=== PATIENT | male | born 1945 | race Caucasian/White ===

== ENCOUNTER 2021-11-21 16:28 | Inpatient (IN) | payer MEDICARE ==
[~2021-11-21] VITALS: Ht 172.7 cm; Wt 71.7 kg
[2021-11-21 20:30] VITALS: BP 154/88
[2021-11-21] MEDS ORDERED: LORAZEPAM 0.5 MG TABLET PO PRN (23:30)
[2021-11-21] MEDS ORDERED: hydrALAZINE HCL IV 20 MG VIAL IV PRN (23:30)
[2021-11-21] MEDS ORDERED: HYDROCODONE/APAP 5/325MG TABLET PO PRN (23:30)
[2021-11-21] MEDS ORDERED: ENOXAPARIN SODIUM 30 MG/0.3 ML DISP.SYRIN SQ SCH (23:30)
[2021-11-21] MEDS ORDERED: ACETAMINOPHEN 325 MG TABLET PO PRN (23:30)
[2021-11-21] MEDS ORDERED: LABETALOL HCL IV 100MG VIAL IV ONE (23:30)
[2021-11-21] MEDS ORDERED: MAG HYDROX/AL HYDROX/SIMETH 30 ML UDC PO PRN (23:30)
[2021-11-22] VITALS: BP 151/90
[2021-11-22 00:14] LABS: THYROID STIMULATING HORMONE 34.128 uIU/mL (0.358-3.74)
[2021-11-22] MEDS ORDERED: DEXTROSE 50%-WATER 50 ML DISP.SYRIN IV PRN (03:30)
[2021-11-22] MEDS ORDERED: ENOXAPARIN SODIUM 30 MG/0.3 ML DISP.SYRIN SQ SCH (03:30)
[2021-11-22 05:00] VITALS: BP 132/80
--- NOTE | 2021-11-22 05:00 | NUR ---
PATIENT IN ER BED 18. PATIENT IS A/O X 2-3, RR EVEN AND UNLABORED NO SOB NOTED. PATIENT PLACED ON CARDIAC AND POX MONITOR. PATIENT IV LINE INTACT FLUSHING WELL RAC 20G. NEURO CHECK DONE PER UNIT PROTOCOL. PATIENT AM CARE DONE. PT TURN AND REPOSITIONED Q2H. PATIENT IN BED LOCKED AND PLACED IN THE LOWEST POSITION, CALL LIGHT IS WITHIN REACH, BED ALARM ON. WILL CONTINUE TO MONITOR.
[2021-11-22 05:37] LABS: BASOPHILS # (AUTO) 0.1 K/uL (0.0-0.2); BASOPHILS % (AUTO) 1.3 % (0.0-2.0); EOSINOPHILS % (AUTO) 4.6 % (0.0-6.0); HEMATOCRIT 28 % (39-51); HEMOGLOBIN 9.4 g/dL (13.5-17.5); LYMPHOCYTES # (AUTO) 1.7 K/uL (0.8-4.8); LYMPHOCYTES % (AUTO) 36.2 % (20.0-44.0); MEAN CORPUSCULAR HGB CONC 33 g/dl (31.0-36.0); MEAN CORPUSCULAR VOLUME 93 fL (80-96); MONOCYTES # (AUTO) 0.4 K/uL (0.1-1.30); MONOCYTES % (AUTO) 7.6 % (2.0-12.0); NEUTROPHILS # (AUTO) 2.4 K/uL (1.8-8.9); NEUTROPHILS % (AUTO) 50.3 % (43.0-81.0); PLATELET COUNT (AUTO) 228 K/uL (150-450); RED BLOOD CELL COUNT(AUTO) 3.03 MIL/uL (4.5-6.0); WHITE BLOOD COUNT (AUTO) 4.7 K/uL (4.3-11.0)
[2021-11-22 06:20] LABS: CALCIUM, SERUM 8.8 mg/dL (8.5-10.1); CARBON DIOXIDE 23 mmol/L (21-32); CHLORIDE 113 mmol/L (98-107); CREATININE 1.1 mg/dL (0.6-1.3); GLUCOSE 67 mg/dL (74-106); POTASSIUM 4.1 mmol/L (3.5-5.1); SODIUM SERUM 145 mmol/L (136-145); UREA NITROGEN, BLOOD 9 mg/dL (7-18)
[2021-11-22 06:31] LABS: CHOLESTEROL 171 mg/dL (<200); HDL CHOLESTEROL 41 mg/dL (40-60); LDL 86 mg/dL (0-99); TRIGLYCERIDES 185 mg/dL (30-150)
[2021-11-22 06:43] LABS: THYROID STIMULATING HORMONE 31.587 uIU/mL (0.358-3.74)
[2021-11-22] MEDS: LEVOTHYROXINE SODIUM 112 MCG TABLET PO SCH (07:30)
[2021-11-22] MEDS: PANTOPRAZOLE 40 MG TABLET.DR PO SCH (07:30)
--- NOTE | 2021-11-22 08:01 | NUR ---
THE PATIENT IS RECEIVED IN ER BED #18. THE PATIENT IS ALERT TO HIS NAME. IN ROOM AIR. RESPIRATION REGULAR AND UNLABORED. THE PATIENT IS IN NO APPARENT DISTRESS. THE PATIENT IS NOTED TO BE FALL RISK. FALL PRECAUTIONS TAKEN. WILL CONTINUE TO MONITOR THE PATIENT.
[2021-11-22] MEDS ORDERED: DOCU-141 PO (08:19)
[2021-11-22] MEDS ORDERED: DONE10TA11 PO (08:19)
[2021-11-22] MEDS ORDERED: OMEG1CAP40 PO (08:19)
[2021-11-22] MEDS ORDERED: CHOL200013 PO (08:19)
[2021-11-22] MEDS ORDERED: ATOR40TA PO (08:19)
[2021-11-22] MEDS ORDERED: SEMGLEE SUBCUT (08:19)
[2021-11-22] MEDS ORDERED: METO25TA6 PO (08:19)
[2021-11-22] MEDS ORDERED: CLOP75TA15 PO (08:19)
[2021-11-22] MEDS ORDERED: LEVO112T2 PO (08:19)
[2021-11-22] MEDS ORDERED: FLUT1BLS IH (08:19)
[2021-11-22] MEDS ORDERED: MULT-447 PO (08:19)
[2021-11-22] MEDS ORDERED: HYDR-4076 PO (08:19)
[2021-11-22] MEDS ORDERED: PANT20TA2 PO (08:19)
[2021-11-22] MEDS ORDERED: ASPI-1169 PO (08:19)
[2021-11-22] MEDS ORDERED: LISI40TA13 PO (08:19)
[2021-11-22] MEDS ORDERED: ASCO500C17 PO (08:19)
[2021-11-22] MEDS ORDERED: METF-442 PO (08:19)
--- NOTE | 2021-11-22 08:20 | NUR ---
BLOOD PRESSURE 131/72, HR 79, R 18, TEMP 98.1 AND OXYGEN SATURATION IN ROOM AIR IS AT 97% WILL CONTINUE TO MONITOR THE PATIENT.
--- NOTE | 2021-11-22 08:49 | NUR ---
WOUND CARE CONSULT: PT SEEN FOR SKIN ASSESSMENT AND NOTED TO BE INCONTINENT OF URINE WITH INTACT SKIN. SOME DISCOLORATION NOTED TO BUTTOCKS. PT IS NOTED TO BE MOVING ABOUT IN BED. DISCUSSED SKIN PROTECTION WITH NURSING STAFF. WILL SEE PRN.
[2021-11-22] MEDS ORDERED: LISINOPRIL (20MG) 20 MG TABLET PO SCH (09:00)
[2021-11-22] MEDS: ENOXAPARIN SODIUM 40 MG/0.4 ML DISP.SYRIN SQ SCH (09:00)
[2021-11-22] MEDS ORDERED: Z GUARD REMEDY 4 OZ OINT TP PRN (09:00)
[2021-11-22] MEDS: DOCUSATE SODIUM 100 MG CAPSULE PO SCH (09:00)
[2021-11-22] MEDS: ASPIRIN EC 81 MG TABLET.DR PO SCH (09:00)
[2021-11-22] MEDS: CLOPIDOGREL BISULFATE 75 MG TABLET PO SCH (09:00)
[2021-11-22] MEDS ORDERED: ASPIRIN EC 325 MG TABLET.DR PO SCH (09:00)
[2021-11-22] MEDS: Z GUARD REMEDY 4 OZ OINT TP SCH ×2 (09:00→21:10)
--- NOTE | 2021-11-22 09:54 | NUR ---
THE PATIENT IS SEEN BY ST FOR SWALLOW EVAL, HOWEVER, ST NOT ABLE TO COMPLETE THE EVAL. KEEPING THE PATIENT NPO FOR NOW PER ST. ST WILL TRY AGAIN LATER.
[2021-11-22] MEDS: METOPROLOL TARTRATE 25 MG TABLET PO SCH ×2 (10:00→21:07)
--- NOTE | 2021-11-22 10:10 | NUR ---
SEEN BY DR MENDEZ
[2021-11-22] MEDS ORDERED: ENOXAPARIN SODIUM 40 MG/0.4 ML DISP.SYRIN SQ ONE (10:13)
--- NOTE | 2021-11-22 10:55 | NUR ---
ROOM 314-1
[2021-11-22] MEDS: BLOOD SUGAR DIAGNOSTIC 1 EACH STRIP IN SCH ×4 (10:56→21:54)
--- NOTE | 2021-11-22 10:59 | NUR ---
REPORT GIVEN TO NURSE ALEXIS FOR MARA
--- NOTE | 2021-11-22 11:00 | NUR ---
AQUACULTURE DIRECTORJEWELRY STORE MANAGER NOTE RECEIVED PATIENT VIA GURNEY, PATIENT IS A/O X1 SYRIAC SPEAKING, PATIENT IS BREATHING EVENLY AND NONLABORED ON ROOM AIR, NO SIGNS OF DISTRESS NOTED AND NO SIGNS OF PAIN NOTED. PATIENT HAS IV ACCESS TO LAC # 20 GAUGE PATENT AND INTACT. PATIENT ABLE TO FOLLOW SIMPLE COMMANDS. PATIENT NOTED WITH SEVERE LEFT SIDED WEAKNESS AND MILD RIGHT SIDED WEAKNESS. PATIENT COMBATIVE AND CONFUSED TRYING TO GET OOB, NOTIFIED. PATIENT WAS GIVEN CALL LIGHT AND EXPLAINED HOW TO USE IT. SKIN C/D/I, ABDOMEN SOFT NONTENDER. PATIENT PLACE ON TELE MONITORING SHOW SINUS TACHYCARDIA. PATIENTS BLOOD SUGAR IS 75, SPEECH AT BEDSIDE, WILL GIVEN ORANGE JUICE WITH SUGAR. PUPILS EQUAL AND REACTIVE. PATIENTS VITALS BP 167/83, HR 105, O2 SAT 95 % RR 18 TEMP 97.7. PATIENT'S BELONGINGS ACCOUNTED FOR. SAFETY MEASURES IN PLACE BED LOW LOCKED AND BED ALARM ON. WILL CONTINUE TO MONITOR
--- NOTE | 2021-11-22 11:00 | NUR ---
THE PATIENT IS TRANSFERRED TO ROOM 314-1 IN STABLE CONDITION AND PER ACLS POLICY.
--- NOTE | 2021-11-22 11:10 | NUR ---
RN NOTE MD GAVE ORDER FOR 1 SOFT WRIST RESTRAINT ON RIGHT ARM, WILL PERFORM 15 MIN VISUAL CHECKS,
[2021-11-22] MEDS: INSULIN REGULAR, HUMAN 100 UNIT/ML 3 ML VIAL SQ PRN ×2 (12:08→17:10)
[2021-11-22 16:00] VITALS: BP 143/79
--- NOTE | 2021-11-22 16:16 | NUR ---
SS Consult requested for Stroke. SW will follow up at a later time.
--- NOTE | 2021-11-22 18:33 | NUR ---
CONE PICKER CLOSING NOTE PATIENT RESTING IN BED. PATIENT IS A/O X1 DUTCH SPEAKING, PATIENT IS BREATHING EVENLY AND NONLABORED ON ROOM AIR, NO SIGNS OF DISTRESS NOTED AND NO SIGNS OF PAIN NOTED. PATIENT HAS IV ACCESS TO LAC # 20 GAUGE PATENT AND INTACT. PATIENT ABLE TO FOLLOW SIMPLE COMMANDS. PATIENT NOTED WITH SEVERE LEFT SIDED WEAKNESS AND MILD RIGHT SIDED WEAKNESS. PATIENT COMBATIVE AND CONFUSED TRYING TO GET OOB, RIGHT SOFT WRIST RESTRAINT ON. PATIENT ON TELE MONITORING SHOW SINUS TACHYCARDIA. SAFETY MEASURES IN PLACE BED LOW LOCKED AND BED ALARM ON SIDE RAILS UP X2, CALL LIGHT WITHIN REACH. WILL ENDORSE TO ONCOMING SHIFT
[2021-11-22 20:53] VITALS: BP 139/82
[2021-11-22] MEDS ORDERED: METOPROLOL TARTRATE 25 MG TABLET ONE (20:56)
[2021-11-22] MEDS: DONEPEZIL 5 MG TABLET PO SCH (21:15)
[2021-11-22] MEDS: ATORVASTATIN 40 MG TABLET PO SCH (21:16)
[2021-11-22] MEDS ORDERED: SIMVASTATIN 20 MG TABLET PO SCH (22:00)
[2021-11-22] MEDS: IV D5/ 0.9% NACL 1,000 ML IV SCH (22:59)
[2021-11-23] VITALS (8 sets, daily range): BP systolic 128–152; BP diastolic 79–112
--- NOTE | 2021-11-23 04:22 | NUR ---
CLOSING NOTES: ALERT TO NURSE AT HIS BEDSIDE MALTESE SPEAKING ATTEMPTED TO FEED HIM HIS DINNER AT THE BEGINNING OF THE SHIFT AND HE REFUSED SHAKING HIS HEAD BACK AND FORTH REFUED TO DRINL WATER FOR ME. PLACED APPLESAUCE AND HIS CRUSHED PILL LOPRESSOR IN HIS MOUTH HE SPIT OUT THE APPLESAUSE ASP PRECAUTIONS HE DOES TALK BUT ONLY MALTESE LEFT SIDE WEAKNESS ARM AND LEG ARM CONTRACTED PREVIOUS STROKE RIGHT ARM STRONG nihss SCORE 7 bLOOD SUGAR hs 59 D50 GIVEN SLOWLY AND THEN THE MD Ngo CALLED AND MADE HIM AWARE THE PT IS NOT EATING BLOOD SUGARS RUNNING LOW AND THE LATEST IS 59 SUGGESTED IV FLUID NEW ORDER RECEIVED. MR. SHEIKH SLIDES DOWN IN THE BED CONTINIOUS THROUGH THE NIGHT ONE WRIST RESTRAINT ON DT HE PULLS OUT THE IV INCONTINENT UA
[2021-11-23] MEDS: BLOOD SUGAR DIAGNOSTIC 1 EACH STRIP IN SCH ×4 (06:03→22:29)
[2021-11-23 06:49] LABS: BASOPHILS # (AUTO) 0.1 K/uL (0.0-0.2); BASOPHILS % (AUTO) 1.5 % (0.0-2.0); EOSINOPHILS % (AUTO) 4.8 % (0.0-6.0); HEMATOCRIT 26 % (39-51); HEMOGLOBIN 8.4 g/dL (13.5-17.5); LYMPHOCYTES # (AUTO) 1.4 K/uL (0.8-4.8); LYMPHOCYTES % (AUTO) 32.3 % (20.0-44.0); MEAN CORPUSCULAR HGB CONC 33 g/dl (31.0-36.0); MEAN CORPUSCULAR VOLUME 93 fL (80-96); MONOCYTES # (AUTO) 0.4 K/uL (0.1-1.30); MONOCYTES % (AUTO) 9.4 % (2.0-12.0); NEUTROPHILS # (AUTO) 2.3 K/uL (1.8-8.9); PLATELET COUNT (AUTO) 217 K/uL (150-450); RED BLOOD CELL COUNT(AUTO) 2.77 MIL/uL (4.5-6.0); WHITE BLOOD COUNT (AUTO) 4.4 K/uL (4.3-11.0)
--- NOTE | 2021-11-23 07:25 | NUR ---
AIRPLANE GASTANK LINER ASSEMBLER OPENING NOTES RECEIVED PT IN BED, AWAKE, A/O X1, WITH CONFUSION. ON ROOM AIR NO SOB NOTED, BREATHING EVEN AND UNLABORED. IV ACCESS ON RAC #20G INTACT AND PATENT WITH D5NS @ 75ML/HR RUNNING. NO SIGNS OF PAIN. WITH RIGHT ARM WRIST RESTRAINT. NOTED PT TRYING TO GET OOB. REPOSITIONED NEEDED. SAFETY MEASURES IN PLACE, BED LOCKED AND IN LOWEST POSITION, SR X4 UP, CALL LIGHT PLACED WITHIN REACH. WILL CONTINUE TO MONITOR.
[2021-11-23] MEDS: PANTOPRAZOLE 40 MG TABLET.DR PO SCH (07:55)
[2021-11-23] MEDS: LEVOTHYROXINE SODIUM 112 MCG TABLET PO SCH (07:55)
[2021-11-23] MEDS: CLOPIDOGREL BISULFATE 75 MG TABLET PO SCH (08:55)
[2021-11-23] MEDS: ASPIRIN EC 81 MG TABLET.DR PO SCH (08:55)
[2021-11-23] MEDS: DOCUSATE SODIUM 100 MG CAPSULE PO SCH (08:55)
[2021-11-23] MEDS: METOPROLOL TARTRATE 25 MG TABLET PO SCH ×2 (08:56→22:34)
[2021-11-23] MEDS: ENOXAPARIN SODIUM 40 MG/0.4 ML DISP.SYRIN SQ SCH (08:56)
[2021-11-23 11:32] LABS: ALBUMIN 2.9 g/dL (3.4-5.0); BILIRUBIN,TOTAL 0.3 mg/dL (0.2-1.0); CALCIUM, SERUM 9.4 mg/dL (8.5-10.1); MAGNESIUM 1.9 mg/dL (1.8-2.4); PHOSPHORUS 1.4 mg/dL (2.5-4.9); TOTAL PROTEIN, SERUM 7.1 g/dL (6.4-8.2)
[2021-11-23 11:53] LABS: POTASSIUM 2.8 mmol/L (3.5-5.1)
[2021-11-23] MEDS: POTASSIUM CHLORIDE 20 MEQ TAB.PRT.SR PO SCH ×3 (12:25→14:57)
[2021-11-23] MEDS ORDERED: K PHOS NEUTRAL 250 MG TABLET PO ONE (12:30)
[2021-11-23] MEDS: LORAZEPAM INJ 2 MG/ML VIAL IV ONE ×2 (14:00→16:11)
[2021-11-23] MEDS: IV D5/ 0.9% NACL 1,000 ML IV SCH (15:03)
[2021-11-23] MEDS ORDERED: LORAZEPAM INJ 2 MG/ML VIAL IV ONE (16:30)
--- NOTE | 2021-11-23 16:35 | NUR ---
RN NOTES LUCINA FROM MRI CAME TO GORE MAKER PATIENT BUT UNABLE TO TAKE PATIENT. PATIENT UNABLE TO KEEP STILL, AGITATED DESPITE GIVING LORAZEPAM IV PRIOR TO PROCEDURE. WILL INFORM MD.
--- NOTE | 2021-11-23 18:40 | NUR ---
MS RN CLOSING NOTES PATIENT RESTING IN BED, NO SIGNS OF ACUTE DISTRESS NOTED. NOTED WITH CONFUSION, REORIENTED NEEDED. RIGHT SOFT WRIST RESTRAINT IN PLACE, NOTED PT TRYING TO GET OOB THROUGHOUT THE SHIFT, REPOSITIONED NEEDED. REMAINS ON ROOM AIR, NO SON NOTED. IV ACCESS ON RAC INTACT AND PATENT WITH D5NS @75ML INFUSING WELL. SAFETY PRECAUTIONS IN PLACE. BED LOCKED AND IN LOWEST POSITION, SR UP, CALL LIGHT PLACED WITHIN EASY REACH. WILL ENDORSE TO NEXT SHIFT.
[2021-11-23] MEDS: DONEPEZIL 5 MG TABLET PO SCH (22:33)
[2021-11-23] MEDS: ATORVASTATIN 40 MG TABLET PO SCH (22:34)
[2021-11-23] MEDS: INSULIN REGULAR, HUMAN 100 UNIT/ML 3 ML VIAL SQ PRN (22:41)
--- NOTE | 2021-11-24 01:00 | NUR ---
MS RN NOTES: UNABLE TO OBTAIN URINE SAMPLE VIA CLEAN CATCH D/T PATIENT'S CONFUSION. NOTIFIED PROVIDER BERNARD. NEW ORDER OBTAINED FOR URINE SPECIMEN VIA STRAIGHT CATH.
--- NOTE | 2021-11-24 01:30 | NUR ---
MS RN NOTES: URINE SAMPLE OBTAINED VIA STERILE STRAIGHT CATH. URINE CLEAR YELLOW. LABELED AND SENT TO LAB.
[2021-11-24 02:30] LABS: BILIRUBIN,URINE NEGATIVE (NEGATIVE); COLOR,URINE YELLOW (YELLOW); LEUKOCYTE ESTERASE ,URINE NEGATIVE (NEGATIVE); NITRITE, URINE NEGATIVE (NEGATIVE); PROTEIN,URINE NEGATIVE (NEGATIVE); UGLUCOSE NEGATIVE (NEGATIVE); UROBILINOGEN,URINE 0.2 EU/dL (0.2)
[2021-11-24] MEDS: IV D5/ 0.9% NACL 1,000 ML IV SCH (06:25)
[2021-11-24] MEDS: PANTOPRAZOLE 40 MG TABLET.DR PO SCH (06:49)
[2021-11-24] MEDS: LEVOTHYROXINE SODIUM 112 MCG TABLET PO SCH (06:49)
[2021-11-24] MEDS: BLOOD SUGAR DIAGNOSTIC 1 EACH STRIP IN SCH ×2 (06:49→13:23)
[2021-11-24 07:25] LABS: BASOPHILS # (AUTO) 0.1 K/uL (0.0-0.2); EOSINOPHILS % (AUTO) 4.8 % (0.0-6.0); HEMATOCRIT 27 % (39-51); HEMOGLOBIN 9.1 g/dL (13.5-17.5); LYMPHOCYTES # (AUTO) 1.8 K/uL (0.8-4.8); MEAN CORPUSCULAR HGB CONC 34 g/dl (31.0-36.0); MEAN CORPUSCULAR VOLUME 92 fL (80-96); MONOCYTES # (AUTO) 0.5 K/uL (0.1-1.30); MONOCYTES % (AUTO) 9.4 % (2.0-12.0); NEUTROPHILS # (AUTO) 2.4 K/uL (1.8-8.9); NEUTROPHILS % (AUTO) 48.8 % (43.0-81.0); PLATELET COUNT (AUTO) 234 K/uL (150-450); RED BLOOD CELL COUNT(AUTO) 2.95 MIL/uL (4.5-6.0); WHITE BLOOD COUNT (AUTO) 4.9 K/uL (4.3-11.0)
[2021-11-24 07:46] LABS: CREATININE 0.9 mg/dL (0.6-1.3); PHOSPHORUS 2.1 mg/dL (2.5-4.9); POTASSIUM 3.4 mmol/L (3.5-5.1)
[2021-11-24 08:00] VITALS: BP 125/70
--- NOTE | 2021-11-24 08:00 | NUR ---
RN NOTE PT AWAKE IN BED. NO DISTRESS. IV LINE INTACT. SKIN INTACT. WILL CONTINUE TO MONITOR.
[2021-11-24] MEDS ORDERED: NEUTRA PHOS 1 POWD.PACKET PO SCH (09:00)
[2021-11-24] MEDS ORDERED: POTASSIUM CHLORIDE 20 MEQ TAB.PRT.SR PO SCH (09:00)
[2021-11-24 09:46] VITALS: BP 125/70
[2021-11-24] MEDS: DOCUSATE SODIUM 100 MG CAPSULE PO SCH (09:46)
[2021-11-24] MEDS: METOPROLOL TARTRATE 25 MG TABLET PO SCH (09:46)
[2021-11-24] MEDS: ASPIRIN EC 81 MG TABLET.DR PO SCH (09:46)
[2021-11-24] MEDS: CLOPIDOGREL BISULFATE 75 MG TABLET PO SCH (09:46)
[2021-11-24] MEDS: Z GUARD REMEDY 4 OZ OINT TP SCH (09:47)
[2021-11-24] MEDS: ENOXAPARIN SODIUM 40 MG/0.4 ML DISP.SYRIN SQ SCH (09:48)
[2021-11-24] MEDS ORDERED: ATOR80TA PO (15:02)
--- NOTE | 2021-11-24 15:32 | NUR ---
RN NOTE IV LINE REMOVED. ID BANDS REMOVED. EXITCARE EDUCATION UTILIZED AND GIVEN TO EMT. PT UNABLE TO SIGN. SKIN INTACT. MED RECON DONE AND GIVEN TO EMT. BELONGINGS CHECKED AND GIVEN TO EMT. REPORT GIVEN TO CECIL JACKSON AT [facility]. PT TRANSPORTED VIA AMBULANCE WITH EMT.
== END 2021-11-24 15:15 | DRG 69 ==
LOC: TRANSITION 19:09 → TELE 11-22 11:59 → MED 11-23 14:22
PROVIDERS: ADMIT Nurse Practitioner Acute Care; ATTEND Hospitalist
DX: G45.9 Transient cerebral ischemic attack, unspecified (principal); N17.9 Acute kidney failure, unspecified; I69.954 Hemiplegia and hemiparesis following unspecified cerebrovascular disease affecting left non-dominant side; D68.59 Other primary thrombophilia; G93.40 Encephalopathy, unspecified; R47.01 Aphasia; E11.9 Type 2 diabetes mellitus without complications; I95.9 Hypotension, unspecified; K80.20 Calculus of gallbladder without cholecystitis without obstruction; N40.0 Benign prostatic hyperplasia without lower urinary tract symptoms; Z74.01 Bed confinement status; E78.5 Hyperlipidemia, unspecified; I10 Essential (primary) hypertension; E83.39 Other disorders of phosphorus metabolism; E03.9 Hypothyroidism, unspecified; E87.6 Hypokalemia; G93.89 Other specified disorders of brain; Z91.81 History of falling
CPT/HCPCS: 36415; 80048-TC; 80053-TC; 80061-TC; 82962-TC; 83540-TC; 83735-TC; 83880; 84100-TC; 84439-TC; 84443-TC; 85025-TC; 85652-TC; 85730-TC; 92526; 92611-TC; 93307-TC; 93880-TC; 97112-TC; 97530-TC; G0378; J0360; J1650; J2060; J3490; J7042